=== PATIENT | female | born 1990 | race Caucasian/White ===

== ENCOUNTER 2016-12-12 04:04 | Emergency (ER) | payer OTHER ==
[~2016-12-12 04:04] MED LIST: ALBUTEROL MININEB INH; ALBUTEROL17 GM INH; PREDNISONE5 M1 PO; SPIRIVA18 MCG INH; SYMBICORT 160/4.6 G1 INH
== END 2016-12-12 04:06 | disposition home or self-care (01) ==
LOC: CED 04:04
DX: J45.901 Unspecified asthma with (acute) exacerbation (principal); Z79.899 Other long term (current) drug therapy
CPT/HCPCS: 84703; 94640; 99283